=== PATIENT | female | born 1960 | race African-American/Black ===

== ENCOUNTER 2018-01-13 21:05 | Emergency (ER) | payer OTHER, BC ==
[~2018-01-13] VITALS: Ht 162.6 cm; Wt 104.3 kg
--- NOTE | ~2018-01-13 | EKG ---
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 : 1960 Requested By: Renu Dyer Order Number: [id number] MD: Timothy Parrish Measurements Intervals [place] Rate: 97 P: 44 SC: 180 QRS: 12 QRSD: 105 T: 35 QT: 381 QTc: 484 Interpretive Statements Sinus rhythm Possible inferior infarct, age indeterminate Compared to ECG 03/21/2015 21:15:53 No significant change was found Electronically Signed On 01-14-2018 7:42:28 CDT by Timothy Parrish [email or web address] <ELECTRONICALLY SIGNED> By: Timothy Parrish MD, [facility] 01/14/18 0742 D: [id number] 14 Timothy Parrish MD, FACC /EPI
[~2018-01-13 21:05] MED LIST: ACCUPRIL40 MG PO; ACETAMINOPHEN325 M1 PO; ACTOS 30 MG TAB30 MG PO; ADULT LOW DOSE81 MG PO; AMARYL1 MG PO; CARVEDILOL3.125 MG PO; CITRATE OF MAG296 ML PO; COLACE100 MG PO; FUROSEMIDE10 MG/1 M2 PO; GAVILAX17 GM PO; GLIMEPIRIDE1 MG PO; LANTUS SUBQ; LEVOXYL175 MCG PO; LEVOXYL200 MCG PO; LIPITOR20 MG PO; MIRALAX17 GM PO; NEPHRO-VITE RX1 TA1 PO; NORCO 5-325 TA1 EACH PO; NORVASC10 MG PO; NOVOLOG100 UNIT/1 SUBQ; OXYCODONE HCL 55 MG PO; PAXIL10 MG; PAXIL10 MG PO; PERCOCET 10-321 EACH PO; PERCOCET 5-3251 EACH PO; REGLAN 10 MG TA10 MG PO; REGLAN 5 MG TAB5 MG PO; RENAL TAB PO; RENVELA800 MG PO; SENNA PO; SENSIPAR 30 MG30 M1 PO; SENSIPAR60 MG PO; TRAMADOL 50 MG50 MG PO; VITAMIN D1000 UNI1 PO; VITAMIN E400 UNI6 PO; WELLBUTRIN SR150 MG PO
[2018-01-13 21:50] LABS: BASOPHILS 0.8 % (0.0-2.0); EOSINOPHILS 2.6 % (0.0-3.0); HEMATOCRIT 34.5 % (37.0-47.0); HEMOGLOBIN 11.1 gm/dL (12.0-15.0); LYMPHOCYTES 18.6 % (24.0-44.0); MCH 27.5 pg (26.0-34.0); MCHC 32.3 g/dL (28.0-37.0); MCV 85.2 fL (80.0-100.0); MONOCYTES 9.5 % (1.0-8.0); PLATELET COUNT 211 thou/uL (150-400); POLYS 68.5 % (36.0-66.0); RBC 4.05 mil/uL (4.20-5.00); RDW 19.4 % (10.5-14.5); WBC 4.3 thou/uL (4.0-11.0)
[2018-01-13 22:01] LABS: INR 1.1; PROTIME 11.3 Seconds (9.3-11.4)
[2018-01-13 22:35] LABS: CALCIUM 9.6 mg/dL (8.5-10.1); CREATININE 5.7 mg/dL (0.6-1.0); POTASSIUM 4.5 mmol/L (3.5-5.1)
[2018-01-13 22:40] LABS: ALBUMIN 3.4 g/dL (3.4-5.0); TOTAL BILIRUBIN 0.6 mg/dL (<0.1-1.0)
[2018-01-13 22:46] LABS: ANISOCYTOSIS 2+; HYPOCHROMASIA 1+; POLYCHROMASIA 1+
== END 2018-01-13 23:16 | disposition home or self-care (01) ==
LOC: ER 21:05
PROVIDERS: Physician Assistant
DX: R11.2 Nausea with vomiting, unspecified (principal); E11.22 Type 2 diabetes mellitus with diabetic chronic kidney disease; N18.6 End stage renal disease; K21.9 Gastro-esophageal reflux disease without esophagitis; E03.9 Hypothyroidism, unspecified; F32.9 Major depressive disorder, single episode, unspecified; F17.210 Nicotine dependence, cigarettes, uncomplicated; Z96.642 Presence of left artificial hip joint; Z86.2 Personal history of diseases of the blood and blood-forming organs and certain disorders involving the immune mechanism; Z86.73 Personal history of transient ischemic attack (TIA), and cerebral infarction without residual deficits; Z79.4 Long term (current) use of insulin

== ENCOUNTER 2018-01-24 14:34 | Inpatient (IN) | payer OTHER, BC ==
[~2018-01-24] VITALS: Ht 162.6 cm; Wt 115.7 kg
--- NOTE | ~2018-01-24 | HC ---
[facility] [place] [address] [place] [address] CONSULTATION Name: RAZIA COLEMAN Room #: 225-P [facility] IN ..#: [id number] Admission: 01/24/18 Attend Phys: Sarath Maher MD Discharge: Date of : 56 Report #: [id number] THIS REPORT FOR: //name// CC: Sarath Jurado DATE OF SERVICE: 01/25/2018 REASON FOR CONSULTATION: End-stage renal disease requiring hemodialysis. HISTORY OF PRESENT ILLNESS: This is a 57-year-old female who was admitted last evening through the Emergency Room. She actually presented in the middle of the afternoon apparently after having had some falls. She says her first fall was 4 days previous. It happened late afternoon. She fell backwards while using her walker. She chronically uses a walker at home. She denies any symptoms of trauma including not striking her head. She tells me she had had some lightheadedness and dizziness. She is normally a hemodialysis patient and dialyzes on a Saturday, Saturday, Saturday basis at [facility]. She had dialysis earlier in the day on 01/20/2018. She says her other falls occurred 2 days ago on 01/23/2018, that was on a nondialysis today. She says again she was somewhat weak, lightheaded, and fell again. She was brought in by her because of these recurrent falls and symptoms. The patient has old history of a stroke that was many years ago. She had some right-sided weakness with that and also some aphasia. For 10 years or so, she has been walking with a walker and has not had problem with falls. Concerning her dialysis, she has been on dialysis for many years. She dialyzes using a left upper arm access. I have contacted the dialysis unit and reviewed her dialysis records starting on 01/20/2018. On that day, she came in and had gained very little fluid volume over the 3-day weekend. Blood pressure was on the . They actually took 0.8 kilogram below her usual target weight, but that still resulted in only just about 1/2 kilos of ultrafiltration. Blood pressures were running 150-160 systolic throughout that run. She had no orthostatic hypotension and there was no description in the dialysis records of any hypotension, weakness or falling at the dialysis unit. She went home and her first fall was apparently a couple hours after that. A couple of days later, she came back for dialysis again, had gained no additional weight. Part of this was explained as she is on the new stricter diet for control of her diabetes. An additional 0.6 kilogram was removed. Yesterday, her dialysis was fairly uneventful. PAST MEDICAL HISTORY: Longstanding diabetes and hypertension. She has had as noted above. She has had a prior left total hip replacement and then that required repeat surgery due to infection. Her states she has been on a walker since that was all done and that has been over 10 years ago. She [address] [address] CONSULTATION Name: RAZIA COLEMAN Room #: 225-P ADM IN ..#: [id number] Admission: 01/24/18 Attend Phys: Sarath Maher MD Discharge: Date of : 56 Report #: [id number] dialyzes using a left upper arm access. She has had previous laminectomy and some diskitis and with the diskitis, has been on chronic suppressive Cipro as an antibiotic for years; that was from 2013. Cultures were Enterobacter and again she has been on chronic Cipro ever since 2013. She also has chronic hypothyroidism and is on replacement for that. She has secondary hyperparathyroidism and anemia of end-stage renal disease. MEDICATIONS: Sensipar 30 mg daily, Nephro-Joe 1 daily, long and short-acting insulin, levothyroxine 0.2 mg daily, oxycodone for pain, MiraLax 17 grams daily, Requip 0.5 mg at bedtime. She gets iron and erythropoietin at dialysis. ALLERGIES: No known medical allergies. FAMILY HISTORY: Noncontributory. SOCIAL HISTORY: The patient is and lives in [place], [place]. She is accompanied by her at this time. She is medically disabled. REVIEW OF SYSTEMS: She has been trying to lose weight. She has been limiting her intake of food. With that, she has actually lost some weight and we have had to adjust her dialysis regimen as noted above. She has had some lightheadedness and dizziness associated with the falls, but that is not a recurring symptom. No palpitations or chest pain. She denies dyspnea. No recent nausea or vomiting. She feels constipated and feels like she needs some extra MiraLax. Dialysis itself has otherwise been uncomplicated. No fevers, chills or sweats. PHYSICAL EXAMINATION: GENERAL: A 57-year-old female, seen in the CCU bed. VITAL SIGNS: Blood pressure 137/59, heart rate 86, temperature 98.6 degrees centigrade, oxygen saturation 99%. HEENT: Shows pupils equal and reactive. Sclerae nonicteric. Oral mucosa is moist. NECK: Supple without adenopathy or JVD. CHEST: Clear bilaterally. HEART: Has a regular rate and rhythm at this time. ABDOMEN: Obese, has active bowel sounds, soft, nontender. EXTREMITIES: Show trace bilateral pretibial edema. Left upper arm access has adequate blood flow. LABORATORY DATA: Sodium 130, potassium 3.7, chloride 95, bicarbonate 32, BUN 12, creatinine 4.1, glucose 180. Again, that was all after dialysis yesterday. AST 40, ALT 34, calcium 8.8, albumin 3.3. Troponin less than 0.06. White count 5.2, hemoglobin 11.0, hematocrit 34.1, platelets 226,000. ASSESSMENT: [address] [address] CONSULTATION Name: RAZIA COLEMAN Room #: 225-P [facility] IN [facility].#: [id number] Admission: 01/24/18 Attend Phys: Sarath Maher MD Discharge: Date of : 56 Report #: [id number] 1. End-stage renal disease. She dialyzed yesterday. She has received all three of her usual dialysis treatments this week. Volume and labs are okay on evaluation at this time. I do not see evidence currently for extra dialysis. We will get her back on her usual schedule beginning 01/27/2018 unless things change. 2. Several recent falls. One was 5 days ago, the other two were 2 days ago, uncertain why this is going on. She is currently being evaluated by physical therapy. Again, the first episodes were in a window of about 2 hours after dialysis even though she had no hypotension or any orthostatic drops demonstrated after dialysis. Her others were on a day between dialysis sessions. We have been trying to get some extra fluid off because she has been losing weight and her blood pressure has been on the . Oftentimes, this might be a setup for orthostatic changes and weakness and potential falls, but I just do not see it at this point. CT head showed her old cerebrovascular accidents. Also with her falls, we will further evaluate her lower extremities. She has had the old back abscess and she is still on the Cipro for that, that has been from about 4-5 years ago. 3. Longstanding type 2 diabetes mellitus. 4. Hypertension. Again, we have been working on volume management. She has been on no antihypertensive medications. 5. Hypothyroidism, on replacement. Continue the same. 6. Anemia, chronically on erythropoietin. PLAN: 1. Next dialysis needs to be in a couple of days. 2. We will continue other medications. 3. We certainly want to avoid p.r.n. blood pressure medications as we want to avoid any attempts at getting things too controlled or getting her orthostatic. 4. We will await neuro and physical therapy evaluations. 5. We will follow along in the care of this patient. By: [id number] [id number] Justin Rivas MD /nt
--- NOTE | ~2018-01-24 | HC ---
[facility] [address] CONSULTATION Name: RAZIA COLEMAN Room #: 225-P ADM IN .R.#: [id number] Admission: 01/24/18 Attend Phys: Sarath Maher MD Discharge: Date of : 56 Report #: [id number] THIS REPORT FOR: //name// CC: Sarath Jurado DATE OF SERVICE: 01/25/2018 HISTORY OF PRESENT ILLNESS: This is a 57-year-old female patient who was evaluated by me, poorly defined history. She gives a history that she is feeling weak. It is not sure how long it is going on. It started probably around Saturday. It started spontaneously without any trauma. It is not clear if she just feel dizzy or weak when it happened, but she said it happened when she tried to stand up. She had prior surgery on the hip. She had a back surgery. It is not clear how much weakness is new and how much is old. She complained of pretty significant dizziness and weakness. REVIEW OF SYSTEMS: Indicate that she is on dialysis for 8 years. She says she is a diabetic for a long period of time. She has a history of anemia. She has a history of stroke with right-sided weakness in 2001; in fact her CT scan shows multiple strokes. She had a hip surgery. She has anemia. She has depression. She has hypothyroidism. She had back surgery in the past. She used to smoke, but does not smoke now. This was her relevant 14-point review of systems. PAST MEDICAL HISTORY: Positive for falls. FAMILY HISTORY: Negative for early age stroke. SOCIAL HISTORY: The patient has smoked in the past, but she does not drink any alcohol. PHYSICAL EXAMINATION: NEUROLOGIC: Indicates she is alert, responsive, able to follow simple and complex command. Her speech, concentration, fund of knowledge and memory is at her baseline. Cranial nerve examination 2-12 was unremarkable. She is pretty weak in the proximal muscles of both lower extremities. She has trouble with the right shoulder, but that is old because of frozen shoulder. She said the leg weakness is also old, but I am not completely certain how old it is. She has a position sense in the lower extremities. Reflexes could not be elicited in the lower extremities. Tone looks symmetrical. She could not cooperate with the fundus examinations. No meningeal sign. There is no carotid bruit. Pulses are difficult to feel. She is moderately built individual who does not have any dysmorphic features of eyes, ears and face. EXTREMITIES: She has no edema, cyanosis or jaundice. CARDIAC: Does not show any definite abnormality. RESPIRATORY: Does not show any respiratory difficulty or rhonchi. [facility] [address] [place] [address] CONSULTATION Name: RAZIA COLEMAN Room #: 225-P [facility] IN M.R.#: [id number] Admission: 01/24/18 Attend Phys: Sarath Maher MD Discharge: Date of : 56 Report #: [id number] NECK: She has no thyroid mass or meningeal sign. VITAL SIGNS: Blood pressure is 137/59, pulse is 86, temperature is 98.6. LABORATORY DATA: Indicates a white count of 5.2. Her sodium is low at 130. She did have a CT scan, which showed old stroke and in fact she has multiple of that. IMPRESSION: I suspect multiple causes are playing a role in the patient's falls. She is pretty significantly weak in both lower extremities, especially proximally. She had a prior back surgery that is probably playing a role in her symptom. She may have postural hypotension and that need to be investigated to see she has compromised circulation. She does have a prior history of stroke that may be contributing to her problem. RECOMMENDATIONS: 1. I will like to get the blood pressure checked in this patient, standing and sitting. 2. We will see if her is compatible with MRI and we will like to do an MRI. They will do it on Saturday as I understand. We will keep an eye on her and see how she does. 3. I think she should work with PT, OT. 4. Rest of the workup will depend upon the outcome of these testing. Thank you very much for this referral. By: [id number] Francisco J Billings MD /nt
--- NOTE | ~2018-01-24 | EKG ---
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 : 1960 Requested By: Erika Edward Order Number: [id number] MD: Timothy Parrish Measurements Intervals [place] Rate: 87 P: 51 [place]: 171 QRS: 12 QRSD: 91 T: 23 QT: 396 QTc: 477 Interpretive Statements Sinus rhythm Small inferior Q waves Compared to ECG 01/13/2018 21:15:41 No significant change was found Electronically Signed On 01-25-2018 11:48:12 CDT by Timothy Parrish [email or web address] <ELECTRONICALLY SIGNED> By: Timothy Parrish MD, [facility] 01/25/18 1148 48 Timothy Parrish MD, [facility] /EPI
--- NOTE | ~2018-01-24 | 2DMMODE ---
[place] [address] [facility] [place] [address] 2 D/M-MODE ECHOCARDIOGRAM Name: RAZIA COLEMAN Radha Room #: 225-P [facility] IN ..#: [id number] Admission: 01/24/18 Attend Phys: Sarath Maher MD Discharge: Date of : 56 Date of Service: 01/25/18 1143 Report #: [id number] THIS REPORT FOR: //name// APPROVED REPORT Study performed: 01/25/2018 09:27:02 EXAM: Comprehensive 2D, Doppler, and color-flow Echocardiogram Patient Location: Bedside Room #: [facility] Status: on-call BSA: 2.17 HR: 92 bpm BP: 139/47 mmHg Rhythm: NSR Other Information Study Quality: Good Indications Weakness, falls. Hx: CVA, DM, tobacco abuse 2D Dimensions RVDd: 37.74 mm LVEF(%): 55.88 (>50%) IVSd: 11.92 (7-11mm) LVOT Diam: 20.28 (18-24mm) LVDd: 50.98 mm PWd: 11.04 (7-11mm) Ascending Ao: 32.37 (22-36mm) LVDs: 36.04 (25-40mm) Aortic Root: 31.43 mm Bassett's LVEF: 55.88 % Volumes Left Atrial Volume (Systole) Single Plane 4CH: 59.34 mL Single Plane 2CH: 59.74 mL Aortic Valve AoV Peak Brando.: 1.43 m/s AO Peak Gr.: 8.20 mmHg LVOT Max P.19 mmHg LVOT Max V: 1.14 m/s GÓMEZ Vmax: 2.57 cm2 Mitral Valve E/A Ratio: 0.8 MV Decel. Time: 184.04 ms MV E Max Brando.: 0.98 m/s [facility] [place] [address] 2 D/M-MODE ECHOCARDIOGRAM Name: RAZIA COLEMAN Room #: 225-P [facility] IN ..#: [id number] Admission: 01/24/18 Attend Phys: Sarath Maher MD Discharge: Date of : 56 Date of Service: 01/25/18 1143 Report #: [id number] A Brando.: 1.23 m/s MV PHT: 53.37 ms IVRT: 76.12 ms Pulmonary Valve PV Peak Brando.: 1.09 m/s PV Peak Gr.: 4.75 mmHg Pulmonary Vein P Vein S: 0.64 m/s P Vein D: 0.32 m/s P Vein S/D Ratio: 2.00 Tricuspid Valve TR Peak Brando.: 2.58 m/s RAP Estimate: 5.00 mmHg TR Peak Gr.: 26.56 mmHg PA Pressure: 32.00 mmHg Left Ventricle The left ventricle is normal size. There is normal LV segmental wall motion. Borderline concentric left ventricular hypertrophy. Left ventricular systolic function is normal. LVEF is 55-60%. Mild diastolic dysfunction is present (impaired relaxation pattern). Right Ventricle The right ventricle is normal size. The right ventricular systolic function is normal. Atria Left atrium is at the upper limits of normal. The right atrium size is normal. Aortic Valve The aortic valve is normal in structure. No aortic regurgitation is present. There is no aortic valvular stenosis. Mitral Valve Mild mitral annular calcification. No mitral regurgitation. No evidence of mitral valve stenosis. Tricuspid Valve The tricuspid valve is normal in structure. Trace tricuspid regurgitation. Estimated PAP is 30-35mmHg. Pulmonic Valve Pulmonic valve is not well visualized. [facility] [address] [place] [address] 2 D/M-MODE ECHOCARDIOGRAM Name: RAZIA COLEMAN Room #: 225-P [facility]#: [id number] Admission: 01/24/18 Attend Phys: Sarath Maher MD Discharge: Date of : 56 Date of Service: 01/25/18 1143 Report #: [id number] Great Vessels The aortic root is normal in size. The ascending aorta is normal in size. IVC is normal in size and collapses >50% with inspiration. Pericardium There is no pericardial effusion. <Conclusion> Left ventricular systolic function is normal. There is normal LV segmental wall motion. LVEF is 55-60%. Mild diastolic dysfunction The aortic valve is normal in structure. No aortic regurgitation or stenosis Mild mitral annular calcification. No mitral regurgitation. Trace tricuspid regurgitation. Estimated pulmonary artery pressure of 30-35mmHg. There is no pericardial effusion. <ELECTRONICALLY SIGNED> By: Timothy Parrish MD, FACC 01/25/18 1143 1143 1143 Timothy Parrish MD, FACC /INF
[2018-01-24 14:35] VITALS: BP 152/64
[2018-01-24 15:36] LABS: ABSOLUTE NEUTROPHILS 3.5 thou/uL (1.4-8.2); BASOPHILS 0.5 % (0.0-2.0); EOSINOPHILS 2.9 % (0.0-3.0); HEMATOCRIT 34.1 % (37.0-47.0); LYMPHOCYTES 18.6 % (24.0-44.0); MCH 27.8 pg (26.0-34.0); MCHC 32.3 g/dL (28.0-37.0); MCV 86.1 fL (80.0-100.0); MONOCYTES 9.8 % (1.0-8.0); PLATELET COUNT 226 thou/uL (150-400); POLYS 68.2 % (36.0-66.0); RBC 3.96 mil/uL (4.20-5.00); RDW 19.3 % (10.5-14.5); WBC 5.2 thou/uL (4.0-11.0)
[2018-01-24 15:50] LABS: ALBUMIN 3.3 g/dL (3.4-5.0); CALCIUM 8.8 mg/dL (8.5-10.1); CREATININE 4.1 mg/dL (0.6-1.0); POTASSIUM 3.7 mmol/L (3.5-5.1); TOTAL BILIRUBIN 0.7 mg/dL (<0.1-1.0); TOTAL PROTEIN 7.5 g/dL (6.4-8.2)
[2018-01-24] MEDS ORDERED: TRESIBA FL100 UNIT/1 SUBQ (15:52)
[2018-01-24 17:39] VITALS: BP 153/55
[2018-01-24 18:43] VITALS: BP 139/47
[2018-01-24 18:50] VITALS: BP 139/47
[2018-01-25 07:40] VITALS: BP 137/59
[2018-01-25] MEDS ORDERED: ROPINIROLE HCL0.5 MG PO (08:16)
[2018-01-25 19:59] VITALS: BP 118/45
[2018-01-26 08:38] VITALS: BP 141/72
[2018-01-26 20:15] VITALS: BP 129/56
[2018-01-27 08:17] VITALS: BP 145/54
[2018-01-27 19:53] VITALS: BP 128/54
[2018-01-28 07:40] VITALS: BP 154/64
[2018-01-28 20:31] VITALS: BP 121/47
[2018-01-29 03:06] LABS: IgA 112 mg/dL (87-352); IgG 1167 mg/dL (700-1600); IgM 53 mg/dL (26-217)
[2018-01-29 08:30] VITALS: BP 156/62
[2018-01-30 11:12] LABS: ANA INTERPRETATION Negative (Negative)
== END 2018-01-29 14:30 | DRG 551 ==
LOC: ER 14:34 → EROBS 16:43 → SICU 16:43
PROVIDERS: Nurse Practitioner Family; Psychiatry & Neurology Neuromuscular Medicine
PROC: 5A1D70Z Performance of Urinary Filtration, Intermittent, Less than 6 Hours Per Day (ICD-10-PCS; principal; 2018-01-26)
DX: M48.061 Spinal stenosis, lumbar region without neurogenic claudication (principal); N18.6 End stage renal disease; E87.1 Hypo-osmolality and hyponatremia; I69.954 Hemiplegia and hemiparesis following unspecified cerebrovascular disease affecting left non-dominant side; I12.0 Hypertensive chronic kidney disease with stage 5 chronic kidney disease or end stage renal disease; Z96.642 Presence of left artificial hip joint; E11.51 Type 2 diabetes mellitus with diabetic peripheral angiopathy without gangrene; K21.9 Gastro-esophageal reflux disease without esophagitis; E03.9 Hypothyroidism, unspecified; F32.9 Major depressive disorder, single episode, unspecified; D64.9 Anemia, unspecified; F17.210 Nicotine dependence, cigarettes, uncomplicated; E11.22 Type 2 diabetes mellitus with diabetic chronic kidney disease; E07.81 Sick-euthyroid syndrome; M54.16 Radiculopathy, lumbar region; E11.42 Type 2 diabetes mellitus with diabetic polyneuropathy; S90.129A Contusion of unspecified lesser toe(s) without damage to nail, initial encounter; W18.39XA Other fall on same level, initial encounter; Y93.89 Activity, other specified; Y92.89 Other specified places as the place of occurrence of the external cause; Y99.8 Other external cause status; Z79.4 Long term (current) use of insulin; Z99.2 Dependence on renal dialysis
CPT/HCPCS: 15000; 32100

== ENCOUNTER 2018-01-29 10:21 | Inpatient (IN) | payer OTHER, BC ==
[~2018-01-29] VITALS: Ht 162.6 cm; Wt 115.8 kg
--- NOTE | ~2018-01-29 | HC ---
[facility] [place] [address] [place] [address] CONSULTATION Name: RAZIA COLEMAN Room #: 511-P [facility] IN ..#: [id number] Admission: 01/29/18 Attend Phys: Abdiel Cline MD Discharge: Date of : 56 Report #: [id number] THIS REPORT FOR: //name// CC: Abdiel Cline Fab Jurado DATE OF SERVICE: 02/02/2018 NEUROBEHAVIORAL STATUS EXAM ATTENDING PHYSICIAN: Abdiel Cline MD. CLOTH SPREADER: Tyler Glaser, PhD. CLINICAL PRESENTATION: The patient is a 57-year-old female admitted to the rehab unit at [facility] for comprehensive inpatient rehabilitation program to improve functional mobility, activities of daily living and self-care and mental status secondary to deficits from a lumbar radiculopathy with lower extremity weakness. She carries an assessment that includes moderate to severe L4-L5 stenosis, a prior history of multiple CVAs within the left middle cerebral artery and lateral right frontal lobe. These CVAs are premorbid, but likely contributing to her presentation. ADDITIONAL DIAGNOSES: Include premorbid peripheral neuropathy, history of right rotator cuff injury with frozen shoulder, end-stage renal disease, on hemodialysis, exogenous obesity, diabetes mellitus type 2 that is poorly controlled and chronic anemia. A complete description of her medical condition and history can be found in her medical record. Neuropsychological consultation was requested to provide assistance in the assessment of cognitive and emotional status and to provide recommendations and services. Prior to this most recent admission, she was living at home with the assistance of her . The patient reports having had numerous falls prior to her admission. Her assisted with instrumental activities of daily living. The patient reports having been independent with most basic activities of daily living. However, at times, she did require assistance with aspects of dressing. She describes difficulty with coordinating motor movement prior to her admission along with dizziness. She is uncertain if she hit her head during any of her recent falls. The patient has been on disability since 2001. 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 TECHNIQUES UTILIZED: Clinical interview, review of medical records, staff consultation and behavioral observation, mini mental status exam 2 standard version, clock drawing and verbal fluency assessment (letter and category). EXAMINATION FINDINGS: The patient was alert and cooperative with the [address] [address] CONSULTATION Name: RAZIA COLEMAN Room #: 511-P [facility] IN ..#: [id number] Admission: 01/29/18 Attend Phys: Abdiel Cline MD Discharge: Date of : 56 Report #: [id number] assessment. She does not present with aphasia; although, she does have reduced verbal fluency. She does not describe auditory or visual hallucinations. Her thoughts are logical and goal oriented. She describes her symptoms to include sleep disturbance, tiredness and fatigue and depression. Her appetite is described as within normal limits. She indicates having taken an antidepressant prior to her hospitalization. However, she was not able to remember which medication she was taking. She is uncertain about her current mood regarding depression. Her performance on the MMSE 2 brief version was within normal limits with a raw score of 15 of 16. She was 3/3 for initial registration, 5/5 for orientation to time and place and 2/3 for immediate recall of 3 items after a brief time delay and distraction. Her performance on the MMSE 2 standard version suggests mild to moderate impairment with a raw score of 23, T score 31, percentile rank of 3. She was 1/5 for serial sevens, 2/2 for naming, 1/1 for repetition, 3/3 for comprehension. She was able to read and follow a single command. The patient had difficulty with writing a sentence and copying a simple geometric design. Verbal fluency was extremely low. She had a raw score of 7 for letter fluency and 9 for category fluency. The patient was able to draw a clock and place the numbers appropriately. However, deficits are noted in placing the hand at a designated time, suggesting executive dysfunction. The patient is presenting with deficits in attention/concentration and severe deficits in verbal fluency and generative speech. DIAGNOSTIC IMPRESSION: Major neurocognitive disorder (dementia), due to vascular disease -- without behavior disorder -- extent to be determined, likely in the moderate range. Unspecified depressive disorder. RECOMMENDATIONS: The patient will need assistance in medication, nutrition and director patient financial services upon her return home. Her environment should be structured to maintain independence and control to the extent possible. Verbal praise and complements about participation in therapies. She will also benefit from the use of compensatory strategies to assist in the management of concentration and thought organization and verbal fluency. Consider reinstatement of an antidepressant. [address] [address] CONSULTATION Name: RAZIA COLEMAN Room #: 511-P [facility] IN M.R.#: [id number] Admission: 01/29/18 Attend Phys: Abdiel Cline MD Discharge: Date of : 56 Report #: [id number] Thank you very much for allowing me to provide the consultation on this patient. <ELECTRONICALLY SIGNED> By: Tlyer Glaser, PhD 02/04/18 1202 [id number] Tyler Glaser, PhD /nt
--- NOTE | ~2018-01-29 | H ---
[facility] [place] [address] HISTORY AND PHYSICAL Name: RAZIA COLEMAN Room #: 511-P ADM IN M.R.#: [id number] Admission: 01/29/18 Attend Phys: Abdiel Cline MD Discharge: Date of : 56 Report #: [id number] THIS REPORT FOR: //name// CC: Abdiel Jurado DATE OF SERVICE: 01/29/2018 HISTORY AND PHYSICAL/POST-ADMISSION PHYSICIAN EVALUATION HISTORY OF PRESENT ILLNESS: The patient is a 57-year-old -[place] female originally admitted to [facility] on 01/24/2018 with a history of falls x 3 within the last week. Lower extremity weakness, mild hyponatremia. She has been followed by Nephrology as well as Neurology regarding the fall workup. She was found to have moderate to severe L4-L5 thecal sac stenosis with lumbar radiculopathy with lower extremity weakness. Neurology recommended EMG be done as an outpatient. She also recommended evaluation by a spine physician. MRI of the brain did reveal multiple strokes in the brain, which were noted to be old and may be contributing some to the presentation. She also was noted to have a diabetic neuropathy, which is a contributing factor. MRI of the brain showed chronic areas of infarction involving a large portion of the left middle cerebral artery and a smaller one involving the lateral right frontal lobe. She is a chronic dialysis patient. She is noted to have significant functional mobility and ADL deficits and with the history of falls and gait instability and the new radiculopathy symptomatology. She has now been admitted for acute in-hospital inpatient rehabilitation. PAST MEDICAL HISTORY: Includes a prior left hip replacement, insulin-dependent diabetes mellitus, GERD, anemia, hepatitis C, peripheral vascular disease, stroke in 2001 with right-sided weakness, hypothyroidism, and depression. She has had a prior laminectomy L3-L4 with L2 through L4 instrumental pedicle screw in 2012. HABITS: Former smoker, 80-llsl-skde history. ALLERGIES: No known drug allergies. MEDICATIONS: Please see the full medication listing. This list includes vitamins, herbals, and supplements. SOCIAL HISTORY: Lives in a single-story house with her spouse 3 entry steps in. She does have a basement, but she does not need to go down there. She was able to feed herself, dress herself. does the cooking, cleaning, shopping, driving. She used a front-wheeled walker in the home wheelchair if needed for longer distances. [facility] [address] [place] [address] HISTORY AND PHYSICAL Name: RAZIA COLEMAN Room #: 511-P [facility] IN ..#: [id number] Admission: 01/29/18 Attend Phys: Abdiel Cline MD Discharge: Date of : 56 Report #: [id number] REVIEW OF SYSTEMS: No current complaints of chest pain, shortness of breath, abdominal discomfort. She has the complaints of lower extremity weakness and concern with gait stability. PHYSICAL EXAMINATION: GENERAL: A 57-year-old obese -[place] female in no distress. She had a low blood sugar earlier today. VITAL SIGNS: Temperature 98.3, pulse 91, respirations 18, blood pressure 143/64. Facies appeared symmetric. HEAD, EYES, EARS, NOSE, AND THROAT: Appeared to be benign. CHEST: Sounded clear to auscultation. CARDIOVASCULAR: Regular rate and rhythm. ABDOMEN: Bowel sounds positive, nontender. GENITOURINARY AND RECTAL: Deferred. EXTREMITIES: She has functional range of motion of the left upper extremity. Right upper extremity, she has decreased abduction, forward flexion, which is significantly decreased and she indicates that she apparently has a frozen shoulder. She notes that she has had an appointment scheduled for an orthopedist to further evaluate. Apparently had some type of rotator cuff injury. Bilateral lower extremities, able to lift antigravity. No edema. Negative Homans sign. Tone appeared to be intact. Transfers have been mod assist with gait min assist to short distance. ASSESSMENT: A 57-year-old -[place] female with the following problem list: 1. Lumbar radiculopathy with lower extremity weakness. 2. Moderate to severe L4-L5 thecal sac stenosis. 3. Prior history of multiple CVAs, left middle cerebral artery and lateral right frontal lobe which are premorbid, but likely contributory to her presentation. 4. Premorbid peripheral neuropathy. 5. History of right rotator cuff injury/frozen shoulder. 6. End-stage renal disease, on hemodialysis. 7. Exogenous obesity. 8. Diabetes mellitus type 2, poorly controlled. 9. Chronic anemia. PLAN: The patient is admitted for acute in-hospital inpatient rehabilitation. From a postadmission physician evaluation perspective, there are no relevant changes since the preadmission screening. Please see the above review of prior and current medical and functional conditions and comorbidities. Please see the patient's previous and current functional status. As far as risk of complications, the patient has the multiple medical comorbidities as noted above. Initial plan of care involves the interdisciplinary acute inpatient rehabilitation program with the goal of maximizing the patient's functional [facility] [address] [place] [address] HISTORY AND PHYSICAL Name: RAZIA COLEMAN Room #: 511-P [facility] IN [facility].#: [id number] Admission: 01/29/18 Attend Phys: Abdiel Cline MD Discharge: Date of : 56 Report #: [id number] independence, so she can hopefully return back to her prior living situation. Measurable functional goals would be for her to improve her ADL and mobility independence decrease the incidence of falls and improve her safety. Strength and endurance and confidence. Prognosis is reasonably good with estimated length of stay probably at least 7-14 days pending progress. Potential barriers would include her multiple medical comorbidities and decreased functional status. The patient meets diagnostic criteria for an acute in-hospital inpatient rehabilitation stay. She meets the medical necessity criteria and we will have the oracle endeca consultant physicians continue to follow. She does have the tolerance for therapies and has appropriate discharge goals back to the home setting. The patient will need to see a spine surgeon post-discharge for further evaluation as per Neurology recommendations. <ELECTRONICALLY SIGNED> By: Abdiel Cline MD 02/12/18 1735 [id number] 1111 Abdiel Cline MD /[facility]
--- NOTE | ~2018-01-29 | PLAN ---
[facility] [place] [address] REHAB UNIT PLAN OF CARE Name: RAZIA COLEMAN Room #: 511-P ADM IN ..#: [id number] Admission: 01/29/18 Attend Phys: Abdiel Cline MD Discharge: Date of : 56 Report #: [id number] THIS REPORT FOR: //name// CC: Abdiel Jurado DATE OF SERVICE: 01/31/2018 SUBJECTIVE: The patient is seen back today in followup. She is in no distress. Last recorded temperature 98.3, pulse 91, respirations 18, blood pressure 143/64. No focal calf swelling. She did have a low blood sugar down to 41, which is being treated. It is back up to 83 now. No focal calf swelling. Transfers are mod assist with gait min assist 100 feet with a four-wheeled walker. In occupational therapy, lower body dressing is dependent. ASSESSMENT: 1. Lumbar radiculopathy with lower extremity weakness. 2. Moderate to severe L4-L5 thecal sac stenosis. 3. Prior history of multiple CVAs, left middle cerebral artery and lateral right frontal lobe, noted to be premorbid. 4. Premorbid peripheral neuropathy. 5. History of right rotator cuff injury/frozen shoulder. 6. End-stage renal disease, on hemodialysis. 7. Exogenous obesity. 8. Diabetes mellitus type 2, poorly controlled. 9. Chronic anemia. PLAN: The overall plan of care is based on the preadmission screen, post-admission physician evaluation and information garnered from therapy assessments. 1. Estimated length of stay is probably at least 7-10 days. 2. Medical prognosis is reasonably good. 3. Anticipated interventions includes the interdisciplinary acute inpatient rehabilitation program with PT and OT, working with her rehab nursing assisting regarding medication management, skin care prophylaxis, bowel and bladder issues, and nursing education. We will have the multidisciplinary rehab therapy team involved. The retail sales vitamin consultant physicians will be involved as well. 4. Anticipated functional outcomes would be for the patient to improve as far as her functional independence due to use of the wheelchair walker in the home and the ability to return back to her prior functional level. The goal is to be independent short distances with a walker and to be able to do basic ADLs. 5. Discharge destination would be back home with her . 6. Expected therapy by discipline includes PT and OT one to one and half hours per day each five days a week throughout the duration of the [place] [address] REHAB UNIT PLAN OF CARE Name: RAZIA COLEMAN Room #: 511-P [facility]#: [id number] Admission: 01/29/18 Attend Phys: Abdiel Cline MD Discharge: Date of : 56 Report #: [id number] The patient missed some therapy yesterday due to dialysis. <ELECTRONICALLY SIGNED> By: Abdiel Cline MD 02/12/18 1735 0854 [id number] Abdiel Cline MD /[place]
[~2018-01-29 10:21] MED LIST changes: +ROPINIROLE HCL0.5 MG PO; +TRESIBA FL100 UNIT/1 SUBQ
[2018-01-29 14:30] VITALS: BP 160/68
[2018-01-29 19:53] VITALS: BP 155/82
[2018-01-30 05:30] LABS: HEMOGLOBIN 10.3 gm/dL (12.0-15.0); MCH 28.3 pg (26.0-34.0); MCHC 33.3 g/dL (28.0-37.0); MCV 84.9 fL (80.0-100.0); RBC 3.65 mil/uL (4.20-5.00); RDW 19.5 % (10.5-14.5); WBC 5.2 thou/uL (4.0-11.0)
[2018-01-30 05:41] LABS: CALCIUM 8.6 mg/dL (8.5-10.1); CREATININE 9.5 mg/dL (0.6-1.0); POTASSIUM 4.7 mmol/L (3.5-5.1)
[2018-01-30 07:30] VITALS: BP 143/64
[2018-01-30 07:40] VITALS: BP 143/64
[2018-01-30 20:21] VITALS: BP 131/71
[2018-01-31 07:20] VITALS: BP 167/79
[2018-01-31 14:10] LABS: GLYCOHEMOGLOBIN (HGB A1C) 6.7 % (4.8-5.6)
[2018-01-31 19:52] VITALS: BP 162/74
[2018-02-01 09:10] VITALS: BP 130/78
[2018-02-01 19:18] VITALS: BP 141/70
[2018-02-02 07:45] VITALS: BP 152/79
[2018-02-02 19:35] VITALS: BP 161/78
[2018-02-03 07:30] VITALS: BP 183/82
[2018-02-03 19:23] VITALS: BP 185/74
[2018-02-04 07:45] VITALS: BP 189/81
[2018-02-04 19:39] VITALS: BP 153/75
[2018-02-05 04:40] LABS: ABSOLUTE NEUTROPHILS 2.9 thou/uL (1.4-8.2); BASOPHILS 1.1 % (0.0-2.0); EOSINOPHILS 2.9 % (0.0-3.0); HEMATOCRIT 27.4 % (37.0-47.0); HEMOGLOBIN 9.4 gm/dL (12.0-15.0); LYMPHOCYTES 21.8 % (24.0-44.0); MCHC 34.3 g/dL (28.0-37.0); MCV 84.6 fL (80.0-100.0); PLATELET COUNT 155 thou/uL (150-400); POLYS 66.2 % (36.0-66.0); RBC 3.24 mil/uL (4.20-5.00); RDW 18.7 % (10.5-14.5); WBC 4.4 thou/uL (4.0-11.0)
[2018-02-05 04:46] LABS: CALCIUM 8.7 mg/dL (8.5-10.1); CREATININE 6.2 mg/dL (0.6-1.0); MAGNESIUM 2.7 mg/dL (1.8-2.4); POTASSIUM 4.9 mmol/L (3.5-5.1)
[2018-02-05 08:20] VITALS: BP 169/85
[2018-02-05 11:00] VITALS: BP 143/85
[2018-02-05 19:34] VITALS: BP 129/61
[2018-02-06 07:35] VITALS: BP 156/76
[2018-02-06 20:21] VITALS: BP 123/58
[2018-02-07 06:47] LABS: ABSOLUTE NEUTROPHILS 2.5 thou/uL (1.4-8.2); BASOPHILS 1.3 % (0.0-2.0); HEMATOCRIT 28.3 % (37.0-47.0); HEMOGLOBIN 9.3 gm/dL (12.0-15.0); MCH 28.4 pg (26.0-34.0); MCHC 32.7 g/dL (28.0-37.0); MONOCYTES 9.1 % (1.0-8.0); PLATELET COUNT 159 thou/uL (150-400); POLYS 60.6 % (36.0-66.0); RBC 3.26 mil/uL (4.20-5.00); RDW 18.3 % (10.5-14.5); WBC 4.1 thou/uL (4.0-11.0)
[2018-02-07 06:58] LABS: CALCIUM 8.7 mg/dL (8.5-10.1); MAGNESIUM 2.4 mg/dL (1.8-2.4); POTASSIUM 5.1 mmol/L (3.5-5.1)
[2018-02-07 07:01] LABS: % SATURATION 28 % (20-39); IRON 47 ug/dL (50-170); TIBC 165 ug/dL (250-450)
[2018-02-07 07:30] VITALS: BP 149/68
[2018-02-07 17:45] VITALS: BP 177/85
[2018-02-07 20:07] VITALS: BP 126/85
[2018-02-08 07:55] VITALS: BP 156/82
[2018-02-08 19:49] VITALS: BP 150/72
[2018-02-09 07:20] VITALS: BP 182/57
[2018-02-09 20:02] VITALS: BP 149/66
[2018-02-10 07:30] VITALS: BP 167/78
[2018-02-10 12:24] VITALS: BP 170/72
[2018-02-10 19:35] VITALS: BP 148/85
[2018-02-11 05:25] LABS: ABSOLUTE NEUTROPHILS 3.6 thou/uL (1.4-8.2); EOSINOPHILS 3.2 % (0.0-3.0); HEMOGLOBIN 9.9 gm/dL (12.0-15.0); LYMPHOCYTES 23.7 % (24.0-44.0); MCH 28.8 pg (26.0-34.0); MCHC 33.1 g/dL (28.0-37.0); MCV 87.2 fL (80.0-100.0); MONOCYTES 6.6 % (1.0-8.0); PLATELET COUNT 188 thou/uL (150-400); POLYS 65.5 % (36.0-66.0); RBC 3.44 mil/uL (4.20-5.00); RDW 18.6 % (10.5-14.5); WBC 5.5 thou/uL (4.0-11.0)
[2018-02-11 05:41] LABS: CALCIUM 9.4 mg/dL (8.5-10.1); CREATININE 9.9 mg/dL (0.6-1.0); POTASSIUM 5.4 mmol/L (3.5-5.1)
[2018-02-11 07:25] VITALS: BP 164/81
[2018-02-11 19:25] VITALS: BP 131/66
[2018-02-12 07:30] VITALS: BP 125/78
[2018-02-12 20:17] VITALS: BP 134/72
[2018-02-13 07:10] VITALS: BP 167/76
[2018-02-13 14:38] VITALS: BP 167/76
[2018-02-13 20:20] VITALS: BP 117/59
[2018-02-14 07:30] VITALS: BP 145/64
[2018-02-14 14:04] VITALS: BP 167/76
[2018-02-14 19:39] VITALS: BP 140/58
[2018-02-15] MEDS ORDERED: CYCLOBENZAPRINE5 MG PO (06:36)
[2018-02-15] MEDS ORDERED: COREG6.25 MG PO (06:36)
[2018-02-15] MEDS ORDERED: RENVELA800 MG PO (06:36)
[2018-02-15] MEDS ORDERED: ASPIRIN325 PO (06:36)
[2018-02-15] MEDS ORDERED: PROCRIT20000 UNIT SUBQ (06:36)
[2018-02-15] MEDS ORDERED: VOLTAREN GEL 1100 G2 TOP (06:36)
[2018-02-15 07:15] VITALS: BP 130/63
== END 2018-02-15 13:59 | disposition home health service (06) | DRG 551 ==
PROVIDERS: Internal Medicine Gastroenterology; Nurse Practitioner; Physical Medicine & Rehabilitation
PROC: 5A1D70Z Performance of Urinary Filtration, Intermittent, Less than 6 Hours Per Day (ICD-10-PCS; principal; 2018-01-30)
PROC: 5A1D70Z Performance of Urinary Filtration, Intermittent, Less than 6 Hours Per Day (ICD-10-PCS; 2018-02-01)
PROC: 5A1D70Z Performance of Urinary Filtration, Intermittent, Less than 6 Hours Per Day (ICD-10-PCS; 2018-02-04)
PROC: 5A1D70Z Performance of Urinary Filtration, Intermittent, Less than 6 Hours Per Day (ICD-10-PCS; 2018-02-06)
PROC: 5A1D70Z Performance of Urinary Filtration, Intermittent, Less than 6 Hours Per Day (ICD-10-PCS; 2018-02-08)
PROC: 5A1D70Z Performance of Urinary Filtration, Intermittent, Less than 6 Hours Per Day (ICD-10-PCS; 2018-02-11)
PROC: 5A1D70Z Performance of Urinary Filtration, Intermittent, Less than 6 Hours Per Day (ICD-10-PCS; 2018-02-13)
PROC: 5A1D70Z Performance of Urinary Filtration, Intermittent, Less than 6 Hours Per Day (ICD-10-PCS; 2018-02-15)
DX: M54.16 Radiculopathy, lumbar region (principal); N18.6 End stage renal disease; E87.1 Hypo-osmolality and hyponatremia; Z68.41 Body mass index [BMI] 40.0-44.9, adult; I69.351 Hemiplegia and hemiparesis following cerebral infarction affecting right dominant side; K92.1 Melena; M48.061 Spinal stenosis, lumbar region without neurogenic claudication; R53.81 Other malaise; R26.9 Unspecified abnormalities of gait and mobility; Z96.642 Presence of left artificial hip joint; K21.9 Gastro-esophageal reflux disease without esophagitis; E03.9 Hypothyroidism, unspecified; F32.9 Major depressive disorder, single episode, unspecified; E66.09 Other obesity due to excess calories; E55.9 Vitamin D deficiency, unspecified; E07.81 Sick-euthyroid syndrome; D63.8 Anemia in other chronic diseases classified elsewhere; R42 Dizziness and giddiness; R53.1 Weakness; F01.50 Vascular dementia, unspecified severity, without behavioral disturbance, psychotic disturbance, mood disturbance, and anxiety; R29.6 Repeated falls; E10.51 Type 1 diabetes mellitus with diabetic peripheral angiopathy without gangrene; E10.22 Type 1 diabetes mellitus with diabetic chronic kidney disease; E10.65 Type 1 diabetes mellitus with hyperglycemia; E10.42 Type 1 diabetes mellitus with diabetic polyneuropathy; S90.122A Contusion of left lesser toe(s) without damage to nail, initial encounter; X58.XXXA Exposure to other specified factors, initial encounter; R10.13 Epigastric pain; R41.89 Other symptoms and signs involving cognitive functions and awareness; I65.23 Occlusion and stenosis of bilateral carotid arteries; Z99.2 Dependence on renal dialysis; Z79.4 Long term (current) use of insulin; Z86.19 Personal history of other infectious and parasitic diseases; Z87.891 Personal history of nicotine dependence; Z91.81 History of falling; Y93.89 Activity, other specified; Y92.89 Other specified places as the place of occurrence of the external cause; Y99.8 Other external cause status
CPT/HCPCS: 10112; 32100

== ENCOUNTER 2019-11-05 17:52 | Inpatient (IN) | payer OTHER, BC ==
[~2019-11-05] VITALS: Ht 162.6 cm; Wt 111.2 kg
--- NOTE | ~2019-11-05 | HC ---
[facility] [place] [address] [place] [address] CONSULTATION Name: RAZIA COLEMAN Room #: 246-P [facility] IN M.R.#: [id number] Admission: 11/05/19 Attend Phys: Bambi Hanks MD Discharge: Date of : 56 Report #: [id number] THIS REPORT FOR: cc: Fab Jurado MD,Fab Díaz,Lynn Crews MD ~ CC: Bambi Jurado DATE OF SERVICE: 11/06/2019 REASON FOR CONSULTATION: End-stage renal disease. REASON FOR PRESENTATION: Status post fall with headache. HISTORY OF PRESENT ILLNESS: This is a very well-known patient to me. She is in end-stage renal disease due to diabetes mellitus and hypertension. She is also known to have hepatitis C, hypothyroidism. She presented yesterday after a fall. She was trying to reach out to something on the floor. She sustained head trauma. When she presented to the Emergency Room yesterday, she was found to have subdural hematoma and was admitted for further evaluation and management. I am being consulted to manage her end-stage renal disease. She denies any gross neurological deficits. PAST MEDICAL HISTORY: 1. End-stage renal disease, maintained on hemodialysis every Saturday, Saturday and Saturday. 2. Diabetes mellitus. 3. Hypertension. 4. Hepatitis C. 5. Peripheral vascular disease. 6. Hypothyroidism. 7. Status post laminectomy. 8. Right shoulder surgery. ALLERGIES: None. MEDICATIONS: 1. EPO. 2. Carvedilol. 3. Aspirin. 4. Insulin. 5. Sensipar. 6. Levothyroxine. 7. Folic acid. [facility] [address] [place] [address] CONSULTATION Name: RAZIA COLEMAN Room #: 246-P [facility] IN ..#: [id number] Admission: 11/05/19 Attend Phys: Bambi Hanks MD Discharge: Date of : 56 Report #: [id number] SOCIAL HISTORY: She denies drug or alcohol abuse. FAMILY HISTORY: Significant for hypertension and diabetes mellitus. REVIEW OF SYSTEMS: GENERAL: No fever or chills. CARDIOVASCULAR: No chest pain or palpitation. PULMONARY: No cough or hemoptysis. GASTROINTESTINAL: No nausea or vomiting. NEUROLOGICAL: Headache. MUSCULOSKELETAL: Occasional ankles pain. PHYSICAL EXAMINATION: GENERAL: She is alert, oriented, in no apparent distress. VITAL SIGNS: Blood pressure is 152/49, pulse rate is 95. HEAD AND NECK: No jugular venous distention. CHEST: No crackles. CARDIOVASCULAR: No rub detected. ABDOMEN: Soft, nontender. LOWER EXTREMITIES: No edema. NEUROLOGICAL: No gross deficits. LABORATORY DATA: Values reviewed. Sodium is 129, potassium is 5.9, BUN is 46, creatinine 7.3. CT head was consistent with left-sided subdural hematoma. ASSESSMENT, IMPRESSION AND PLAN: 1. End-stage renal disease. 2. Diabetes mellitus. 3. Hyponatremia. 4. Hyperkalemia. 5. Subdural hematoma. 6. I will arrange for the patient to have her usual hemodialysis today. 7. Neurosurgical consultation has been obtained for her subdural hematoma. 8. Resume the patient's blood pressure and blood sugar medication. 9. We will continue to follow during her hospital stay. By: [id number] Lynn Díaz MD /nt
--- NOTE | ~2019-11-05 | EMS ---
[address] [address] EMS Patient Care Report Name: RAZIA COLEMAN Room #: REG JAMARI [place]#: [id number] Admission: 11/05/19 Attend Phys: Discharge: Date of : 56 Report #: [id number] THIS REPORT FOR: //name// Report Transmitted: 11/05/2019 17:40 EMS Care Summary [place], [place]/[facility] Incident [id number] @ 11/05/2019 17:13 Incident Location [address] [place], [place] [address] [address] Patient RAZIA COLEMAN Female, 59 Years 1960 Patient Address [facility] [place] [address] Patient History Dialysis, Patient Allergies No known allergies, Chief Complaint HEAD AND CHEEK PAIN Disposition Transported No Lights/[place] Dispatch Reason Falls Transported To [facility] Narrative ARRIVED ON SCENE AT A RESIDENTIAL HOME FOR A 59 YEAR OLD FEMALE WHO FELL. PUMPER CREW AND EMS ARRIVED ON SCENE AT THE SAME TIME. EMS MADE ENTRY IN PROPER PPE TO MITIGATE POTENTIAL EXPOSURES. PT DENIED FEVER, COUGH, SHORTNESS OF BREATH, OR ANY FLU LIKE SYMTOMS. PT CONTACT WAS MADE WITH THE PT'S . PT [address] [address] EMS Patient Care Report Name: RAZIA COLEMAN Room #: REG JAMARI [place]#: [id number] Admission: 11/05/19 Attend Phys: Discharge: Date of : 56 Report #: [id number] WAS SITTING UP ON THE FLOOR WITH HER HOLDING PRESSURE ON THE PT'S HEAD. PT STATED SHE WAS WALKING WITH HER WALKER AND LOST HER BALANCE AND FELL AND HIT HER HEAD ON HER KITCHEN COUNTER. EMS EXAMINED THE PT'S HEAD AND FOUND A 3 INCH LACERATION IN THE CENTER OF THE TOP OF HER HEAD WITH MODERATE BLEEDING AND A CONTUSION BESIDE IT. PT FELL FOREWARD AND DENIED ANY NECK PAIN AND THE PT HAS CRONIC BACK PAIN. PT ALSO HAD SWELLING ON HER RIGHT CHEEK FROM THE FALL. PT DENIED LOSS OF COUNCIOUSNESS. PT TAKES ASPIRIN DAILY AND DENIES ANY OTHER BLOOD THINNERS. PT WAS LIFTED VIA 5 FIRE FIGHTERS AND WAS CARRIED TO THE COT AND PLACED IN A POSITION OF COMFORT AND SECURED VIA 2 SEATBELTS. PT WAS TRANSPORTED TO AND LOADED INTO THE AMBULANCE. EMS HOOKED THE PT UP TO THE MONITOR AND BANDAGED THE PT'S LACERATION AND CONTROLLED THE BLEEDING. PT WAS TRANSPORTED TO [facility] PER PT CHOICE WITH NO CHANGES EN ROUTE. PT WAS TAKEN TO ER BED 5 WHERE TRANSPORT REPORT WAS GIVEN TO THE RECEIVING STAFF. ER NURSE SIGNED FOR TRANSFER OF CARE AND EMS WENT BACK INTO SERVICE. Initial Vitals @17:41P: 87,R: 20,BP: 132/70,Pain: 6/10,GCS: 15,CO: 7,SpO2: 99,Revised Trauma: 12,CT Suspected: false @17:30P: 92,R: 20,BP: 153/76,Pain: 6/10,GCS: 15,CO: 1,SpO2: 98,Revised Trauma: 12,CT Suspected: false Assessments @17:21MENTAL:Person Oriented,Time Oriented,Place Oriented,Event Oriented,SKIN:HEENT:Head/Face: Swelling,Eyes: Left Pupil: 3-mm,Eyes: Right Pupil: 3-mm,Neck/Airway: No Abnormalities,LUNG SOUNDS:General: No Abnormalities,ABDOMEN:General: No Abnormalities,PELVIS//GI:No Abnormalities,EXTREMITIES:Left Arm: No Abnormalities,Right Arm: No Abnormalities,Left Leg: No Abnormalities,Right Leg: No Abnormalities,PULSE:NEURO:No Abnormalities, Impression Injury of Head Procedures @17:21ALS AssessmentResponse: UnchangedSucceeded@17:32Saline Lock 0cc (18 ga) Site: Antecubital-LeftResponse: UnchangedFailed Timeline 17:12,Call Received 17:12,Dispatch Notified 17:13,Dispatched 17:15,En Route 17:19,On Scene 17:21,At Patient 17:21,ALS Assessment,Response: UnchangedSucceeded, 17:30,BP: 153/76 M,PULSE: 92,RR: 20 R,SPO2: 98 Ox,ETCO2: ,BG: ,PAIN: 6,GCS: 15, [facility] [address] [place] [address] EMS Patient Care Report Name: RAZIA COLEMAN [facility] [id number] Admission: 11/05/19 Attend Phys: Discharge: Date of : 56 Report #: [id number] 17:32,Saline Lock 0cc 18 ga Site: Antecubital-Left,Response: UnchangedFailed, 17:33,Depart Scene 17:41,BP: 132/70 M,PULSE: 87,RR: 20 R,SPO2: 99 Ox,ETCO2: ,BG: ,PAIN: 6,GCS: 15, 17:42,At Destination 17:59,Call Closed Disclaimer v1.1 Copyright 2020 [employer] This EMS Care Summary contains data elements from the applicable legal record (which may be displayed differently). It is designed to provide pertinent information for the following purposes: continuity of care, clinical quality, and state data reporting. The complete legal record is available to ED staff and administrators of the receiving hospital in [employer]'s Patient Tracker. All data is provided "as is."
[~2019-11-05 17:52] MED LIST changes: +ASPIRIN325 PO; +COREG6.25 MG PO; +CYCLOBENZAPRINE5 MG PO; +PROCRIT20000 UNIT SUBQ; +VOLTAREN GEL 1100 G2 TOP
[2019-11-05 17:53] VITALS: BP 148/47
[2019-11-05 20:23] VITALS: BP 146/56
[2019-11-05 21:06] LABS: ABSOLUTE NEUTROPHILS 4.2 thou/uL (1.4-8.2); HEMATOCRIT 31.5 % (37.0-47.0); HEMOGLOBIN 10.4 gm/dL (12.0-15.0); LYMPHOCYTES 16.1 % (24.0-44.0); MCH 29.5 pg (26.0-34.0); MCHC 32.9 g/dL (28.0-37.0); MCV 89.6 fL (80.0-100.0); PLATELET COUNT 241 thou/uL (150-400); POLYS 73.9 % (36.0-66.0); RBC 3.51 mil/uL (4.20-5.00); RDW 16.8 % (10.5-14.5); WBC 5.6 thou/uL (4.0-11.0)
[2019-11-05 21:15] LABS: CALCIUM 9.3 mg/dL (8.5-10.1); CREATININE 6.5 mg/dL (0.6-1.0); POTASSIUM 3.9 mmol/L (3.5-5.1)
[2019-11-05 21:19] LABS: APTT 21.9 Seconds (24.5-32.8); INR 1.1; PROTIME 11.4 Seconds (9.3-11.4)
[2019-11-05 22:00] VITALS: BP 115/46; BP 115/47
--- NOTE | 2019-11-05 22:56 | NUR ---
PT ARRIVED FROM ER AT 2132. VITAL SIGNS AND ASSESSMENT COMPLETED PER ICU PROTOCOL. EUFEMIA FRANCOIS AT BEDSIDE NOW.
[2019-11-05 23:30] VITALS: BP 114/49
[2019-11-06] VITALS (43 sets, daily range): BP systolic 85–162; BP diastolic 31–76
[2019-11-06 05:04] LABS: CALCIUM 8.2 mg/dL (8.5-10.1); CREATININE 7.3 mg/dL (0.6-1.0)
[2019-11-06 05:05] LABS: POTASSIUM 5.2 mmol/L (3.5-5.1)
--- NOTE | 2019-11-06 06:05 | NUR ---
Neurocheck hourly per order, No changes from admission assessment. Repeat CT head this am, result is pending. BS 383 mg/Dl. Notified LEGAL RECOVERY SPECIALIST mental health consultant, will start her on SSI.
--- NOTE | 2019-11-06 09:14 | NUR ---
cm tried x 3 to reach pt at bedside via phone call, unable to call into pt room via phone. pt currently being set up for her dialysis tx. will cont following as needed for dc needs. simone spoke with bedside nurse and requested to have dora call simone.
[2019-11-06] MEDS ORDERED: LEVEMIR FL100 UNIT/2 SUBQ (10:24)
--- NOTE | 2019-11-06 13:24 | NUR ---
PT ON SERVICE WITH [facility] PRIOR TO ADM. FAXED REFERRAL TO [facility] SPOKE WITH GAURAV IN INTAKE SHE RECEIVED REFERRAL AND WILL [facility] AT DISCHARGE. IF PT DISCHARGES OVER WEEKEND FAX DC ORDERS/SUMMARY TO [phone] AND CALL [phone] TO NOTIFY OF DISCHARGE.
--- NOTE | 2019-11-06 15:45 | NUR ---
PT ALERT AND ORIENTED X4. COMPLAINING OF PAIN IN LAC HEAD, NECK, AND BACK. PRN MORPHINE GIVEN WITH GOOD PAIN RELIEF. DIALYSIS DONE THIS AM. TOLERATED WELL. ORDER TO TRANSFER TO TELE. REPORT GIVEN TO BRE Y[facility]G [facility]. PT'S CALLED AND INFORMED OF TRANSFER.
--- NOTE | 2019-11-06 19:43 | NUR ---
PT TRANSFERED FROM ICU. PT ALERT X4 FROM HOME. PAIN ON HEAD TREATED WITH COLD WASH CLOTH, CHRONIC NECK AND BACK PAIN 12/12. BS TREATED WITH INSULIN PER ORDER. PT IS ANURIC, DIALYSIS TODAY WITH 2L REMOVED PER OUTPATIENT THERAPIST. POSSIBLE DC HOME WITH HH TOMORROW. CALL LIGHT IN REACH. BED ALARM SET. PT STATES SHE USES WALKER TO AMBULATE.
[2019-11-07 05:13] VITALS: BP 129/53
[2019-11-07 07:32] VITALS: BP 107/45
[2019-11-07 11:25] VITALS: BP 121/57
[2019-11-07 14:54] VITALS: BP 121/57
--- NOTE | 2019-11-07 16:06 | NUR ---
ASSUMED CARE 0700. ALERT X4, PAIN MANAGED WITH PRN MEDS, DENIES SOB, DENIES CHEST PAIN, LACERATIONS C JYOTI INTACT NO DRAINAGE. WORKED WITH PHYSICAL THERAPY WHO VOICED SHE IS CLOSE TO HER BASELINE. WILL DC HOME WITH HH.
--- NOTE | 2019-11-09 07:04 | NUR ---
RECEIVED OT EVALUATION ORDER. PATIENT DISCHARGED PRIOR TO OT BEING ABLE TO INITIATE THE EVALUATION.
== END 2019-11-07 17:15 | disposition home health service (06) | DRG 40 ==
LOC: ER 17:52 → EROBS 20:14 → ICU 20:14 → 2N 11-06 16:58
PROVIDERS: Emergency Medicine; Nurse Practitioner Family; ADMIT Hospitalist
PROC: 0JQ00ZZ Repair Scalp Subcutaneous Tissue and Fascia, Open Approach (ICD-10-PCS; principal; 2019-11-05)
PROC: 5A1D70Z Performance of Urinary Filtration, Intermittent, Less than 6 Hours Per Day (ICD-10-PCS; 2019-11-06)
DX: S06.5X9A Traumatic subdural hemorrhage with loss of consciousness of unspecified duration, initial encounter (principal); N18.6 End stage renal disease; E87.1 Hypo-osmolality and hyponatremia; E16.2 Hypoglycemia, unspecified; W01.0XXA Fall on same level from slipping, tripping and stumbling without subsequent striking against object, initial encounter; Z96.642 Presence of left artificial hip joint; K21.9 Gastro-esophageal reflux disease without esophagitis; E11.22 Type 2 diabetes mellitus with diabetic chronic kidney disease; E11.51 Type 2 diabetes mellitus with diabetic peripheral angiopathy without gangrene; E03.9 Hypothyroidism, unspecified; F17.210 Nicotine dependence, cigarettes, uncomplicated; F32.9 Major depressive disorder, single episode, unspecified; E87.5 Hyperkalemia; G89.29 Other chronic pain; M54.9 Dorsalgia, unspecified; D53.9 Nutritional anemia, unspecified; S01.01XA Laceration without foreign body of scalp, initial encounter; Y93.89 Activity, other specified; B19.20 Unspecified viral hepatitis C without hepatic coma; Z99.2 Dependence on renal dialysis; Y92.89 Other specified places as the place of occurrence of the external cause; Y99.8 Other external cause status; Z98.1 Arthrodesis status; Z79.82 Long term (current) use of aspirin; Z79.891 Long term (current) use of opiate analgesic; Z79.899 Other long term (current) drug therapy; Z82.49 Family history of ischemic heart disease and other diseases of the circulatory system; Z83.3 Family history of diabetes mellitus
CPT/HCPCS: 10078; 10081; 32100

== ENCOUNTER → 2019-11-12 | Outpatient (CLI) | payer OTHER, BC | LOC: CAT 12:48 | DX: S06.5X9D Traumatic subdural hemorrhage with loss of consciousness of unspecified duration, subsequent encounter (principal); X58.XXXD Exposure to other specified factors, subsequent encounter ==

== ENCOUNTER → 2019-11-19 | Outpatient (CLI) | payer OTHER, BC ==
[~2019-11-19] MED LIST changes: +LEVEMIR FL100 UNIT/2 SUBQ
== END ==
LOC: CAT 12:54
DX: S06.5X0A Traumatic subdural hemorrhage without loss of consciousness, initial encounter (principal); M48.52XA Collapsed vertebra, not elsewhere classified, cervical region, initial encounter for fracture; X58.XXXA Exposure to other specified factors, initial encounter; Y93.89 Activity, other specified; Y92.89 Other specified places as the place of occurrence of the external cause; Y99.8 Other external cause status

== ENCOUNTER → 2019-11-24 | Outpatient (CLI) | payer OTHER, BC | LOC: CAT 10:18 | DX: S06.5X9A Traumatic subdural hemorrhage with loss of consciousness of unspecified duration, initial encounter (principal); X58.XXXA Exposure to other specified factors, initial encounter; Y93.89 Activity, other specified; Y92.89 Other specified places as the place of occurrence of the external cause; Y99.8 Other external cause status ==

== ENCOUNTER → 2020-02-11 | Outpatient (CLI) | payer OTHER, BC ==
[~2020-02-11] MED LIST changes: +ASA81BEC PO; +ESCITALOPRA5 MG/5 ML PO; +LIPITOR10 MG PO; +PLAVIX 75 MG TA75 MG PO
== END ==
LOC: SJCVCIMAG 09:22
PROVIDERS: ATTEND Podiatrist Foot & Ankle Surgery
DX: I70.203 Unspecified atherosclerosis of native arteries of extremities, bilateral legs (principal)

== ENCOUNTER → 2020-03-22 | Outpatient (CLI) | payer OTHER, BC | LOC: SJCVC 12:52 | PROVIDERS: ATTEND Nuclear Medicine Nuclear Cardiology | DX: E78.00 Pure hypercholesterolemia, unspecified (principal); E11.51 Type 2 diabetes mellitus with diabetic peripheral angiopathy without gangrene; E11.22 Type 2 diabetes mellitus with diabetic chronic kidney disease; I12.9 Hypertensive chronic kidney disease with stage 1 through stage 4 chronic kidney disease, or unspecified chronic kidney disease; Z79.4 Long term (current) use of insulin; Z99.2 Dependence on renal dialysis ==

== ENCOUNTER 2020-03-24 10:52 | Observation (INO) | payer OTHER, BC ==
[~2020-03-24] VITALS: Ht 162.6 cm; Wt 106.6 kg
[~2020-03-24 10:52] MED LIST changes: -ASA81BEC PO; -ESCITALOPRA5 MG/5 ML PO; -LIPITOR10 MG PO; -PLAVIX 75 MG TA75 MG PO
[2020-03-24 11:49] VITALS: BP 178/85
[2020-03-24] MEDS ORDERED: LIPITOR10 MG PO (12:12)
[2020-03-24] MEDS ORDERED: PLAVIX 75 MG TA75 MG PO (12:13)
[2020-03-24] MEDS ORDERED: ESCITALOPRA5 MG/5 ML PO (12:13)
[2020-03-24] MEDS ORDERED: ASA81BEC PO (12:15)
[2020-03-24 12:36] LABS: HEMATOCRIT 34.3 % (37.0-47.0); HEMOGLOBIN 11.2 gm/dL (12.0-15.0); MCH 27.7 pg (26.0-34.0); MCHC 32.7 g/dL (28.0-37.0); MCV 84.5 fL (80.0-100.0); RBC 4.06 mil/uL (4.20-5.00); RDW 19.4 % (10.5-14.5); WBC 5.6 thou/uL (4.0-11.0)
[2020-03-24 13:05] LABS: CALCIUM 9.4 mg/dL (8.5-10.1); CREATININE 6.3 mg/dL (0.6-1.0); POTASSIUM 5.1 mmol/L (3.5-5.1)
[2020-03-24 16:45] VITALS: BP 121/54
[2020-03-24 17:00] VITALS: BP 119/47
[2020-03-24 17:15] VITALS: BP 129/51
[2020-03-24 17:30] VITALS: BP 135/57
[2020-03-24 19:29] VITALS: BP 125/60
--- NOTE | 2020-03-24 20:26 | NUR ---
PT. ARRIVED AT FLOOR AROUND 1645; PT. AOX4; ON BED REST; L. SIDE GROIN C/D/I; EDUCATED ABOUT BED REST UNTIL 1800; [facility]; EDUCATED ABOUT CALLING BEFORE GETTING UP FROM BED; [facility]; PRN PAIN MEDICATION GIVEN; ADMISSION PERFORMED; ASSESSMENT CHARGED; FOLLOWING POC; PASSED ON REPORT;
[2020-03-25 05:01] VITALS: BP 147/63
--- NOTE | 2020-03-25 07:30 | NUR ---
PT ALERT AND ORIENTED. VSS.PRN PAIN MEDS FOR CHRONIC BACK PAIN. DENIES CHEST PAIN OR S/P. CATH SITE, RIGHT GROIN, C/D/I. WILL CONTINUE TO MONITOR AND FOLLOW POC.
[2020-03-25 08:00] VITALS: BP 161/72
--- NOTE | 2020-03-25 09:31 | NUR ---
RECEIVED PT'S CARE AROUND 0730; PT. ON BED; ALERT; DURING AM ASSESSMENT PT. AOX4; C/O BACK PAIN; 12/12; CHRONIC BACK PAIN; PRN PAIN MEDICATION NOT DUE; [facility]; REFUSED PLAVIX; NOT TAKE ON A REGULAR BASIS; BLASTING GANG MINER MOTOR CARRIER INSPECTOR AWARE; INSULIN GIVEN; REQUESTED MIRALAX; BLASTING GANG MINER MOTOR CARRIER INSPECTOR NOTIDIED; ORDERS ON PLACED; EDUCATED ABOUT D/C PROCESS; [facility]; [facility] GET [facility] HOSPITAL AFTER 1100; ASSESSMENT CHARGED; FOLLOWING POC; MONITORING; WORKING ON D/C PAPERS;
[2020-03-25 10:38] VITALS: BP 161/72
[2020-03-25 10:40] VITALS: BP 161/72
== END 2020-03-25 11:14 | disposition home or self-care (01) ==
LOC: CATH 10:52 → 2N 16:44 → CATH 16:45 → 2N 16:45
PROVIDERS: ADMIT Nuclear Medicine Nuclear Cardiology; ATTEND Nuclear Medicine Nuclear Cardiology
DX: I70.201 Unspecified atherosclerosis of native arteries of extremities, right leg (principal); I70.202 Unspecified atherosclerosis of native arteries of extremities, left leg; E11.22 Type 2 diabetes mellitus with diabetic chronic kidney disease; I12.0 Hypertensive chronic kidney disease with stage 5 chronic kidney disease or end stage renal disease; N18.6 End stage renal disease; E78.00 Pure hypercholesterolemia, unspecified; Z79.4 Long term (current) use of insulin; Z79.82 Long term (current) use of aspirin; Z79.899 Other long term (current) drug therapy; Z99.2 Dependence on renal dialysis
CPT/HCPCS: 10081

== ENCOUNTER 2020-12-29 17:30 | Inpatient (IN) | payer OTHER, BC ==
[~2020-12-29] VITALS: Ht 162.6 cm; Wt 105.2 kg
[~2020-12-29 17:30] MED LIST changes: +ASA81BEC PO; +ESCITALOPRA5 MG/5 ML PO; +LIPITOR10 MG PO; +PLAVIX 75 MG TA75 MG PO
[2020-12-29 17:35] VITALS: BP 188/93
[2020-12-29 18:38] LABS: ABSOLUTE NEUTROPHILS 4.1 thou/uL (1.4-8.2); BASOPHILS 0.7 % (0.0-2.0); EOSINOPHILS 2.9 % (0.0-3.0); HEMATOCRIT 38.7 % (37.0-47.0); HEMOGLOBIN 12.2 gm/dL (12.0-15.0); LYMPHOCYTES 19.8 % (24.0-44.0); MCH 28.3 pg (26.0-34.0); MCHC 31.6 g/dL (28.0-37.0); MCV 89.8 fL (80.0-100.0); MONOCYTES 7.3 % (1.0-8.0); PLATELET COUNT 228 thou/uL (150-400); POLYS 69.3 % (36.0-66.0); RBC 4.31 mil/uL (4.20-5.00); RDW 16.5 % (10.5-14.5); WBC 5.9 thou/uL (4.0-11.0)
[2020-12-29 18:39] LABS: ANION GAP 9 mmol/L (7-16); BUN 31 mg/dL (7-18); CALCIUM 8.9 mg/dL (8.5-10.1); CHLORIDE 95 mmol/L (98-107); CO2 32 mmol/L (21-32); CREATININE 6.5 mg/dL (0.6-1.0); GLUCOSE 278 mg/dL (74-106); POTASSIUM 5.1 mmol/L (3.5-5.1); SODIUM 136 mmol/L (136-145)
[2020-12-29 18:45] LABS: ALBUMIN 3.4 g/dL (3.4-5.0); DIRECT BILIRUBIN < 0.1 mg/dL (<0.1-0.2); SGOT 21 U/L (15-37); SGPT 18 U/L (14-59); TOTAL BILIRUBIN 0.3 mg/dL (0.2-1.0); TOTAL PROTEIN 8.5 g/dL (6.4-8.2)
[2020-12-29 18:46] LABS: INR 1.03; PROTIME 11.2 Seconds (10.5-12.1)
[2020-12-29] MEDS ORDERED: LEVOTHYROXINE100 MC2 PO (19:03)
[2020-12-29] MEDS ORDERED: CARVEDILOL12.5 MG PO (19:06)
[2020-12-29 21:29] VITALS: BP 195/91
[2020-12-29 21:56] VITALS: BP 196/91
[2020-12-29 22:00] VITALS: BP 177/92
--- NOTE | 2020-12-30 00:42 | NUR ---
PT ARRIVED VIA CART FROM ER. PT A/0X4 AND VSS. ALL CONSULTS HAVE BEEN CALLED IN. INTERVENTIONS INITIATED, CARE PLAN IN PLACE, AND MEC REC COMPLETED. PT USES WALKER AT HOME. DIALYSIS WILL BE ON SATURDAY. WILL CONTINUE TO ASSESS.
[2020-12-30] MEDS ORDERED: CALCIUM ACETAT667 M1 PO (00:49)
[2020-12-30 04:11] LABS: GLYCOHEMOGLOBIN (HGB A1C) 8.7 % (4.8-5.6)
[2020-12-30 04:34] LABS: CHOLESTEROL 153 mg/dL (<200); HDL CHOLESTEROL 53 mg/dL (>40); LDL CHOLESTEROL 85 mg/dL (<100); TC:HDL 2.9 Ratio (Not establshd); TRIGLYCERIDE 75 mg/dL (<150); VLDL 15 mg/dL (<40)
[2020-12-30 04:45] LABS: SERUM ASSESSMENT Clear
[2020-12-30 05:29] VITALS: BP 135/66
[2020-12-30 07:50] VITALS: BP 154/70
--- NOTE | 2020-12-30 13:29 | NUR ---
INITIAL ASSESSMENT: VIVIANE reviewed chart and spoke with nursing and attending physician. Pt was admitted from home due to possible CVA. Pt with hx CVA and ESRD. Pt goes to dialysis at [facility]. Pt was on [facility] in March of 2020 for inpt acute rehab and discharged home with [facility]. Pt to have MRI today. Neuro consulted. VIVIANE met with pt at bedside. Introduced role of SW. Pt is alert/orientated x 4. Pt reports she lives at home with her . Prior to admission, pt was independent with ADLs. Pt does have a walker. Pt states there are 3 steps into her house. Pt goes to dialysis MWF second shift. Pt's PCP is Dr. Fab Jurado. [facility] is consulted. VIVIANE discussed discharge options for pt. Pt is agreeable with going to [facility] if accepted. Awaiting input from [facility] at this time. VIVIANE spoke with Renee at [facility]. Update provided. If pt is discharged home over the weekend, pt can resume her regular dialysis schedule on Saturday. Finalized discharge ppwk will need to be faxed to [facility] if pt is discharged over the weekend. VIVIANE is following to assist as needed with discharge planning. [facility]--
[2020-12-30 15:17] VITALS: BP 96/64
--- NOTE | 2020-12-30 16:18 | NUR ---
PT RESTING COMFORTABLY. DIALYSIS TODAY FOR 3.5 HOURS, WITH 2L TAKEN OFF (PER BED LABORER). MRI OF HEAD TODAY. NIH CONTINUES TO BE 4, WITH NO INCREASING OR DECREASING SCORE. PT AFEBRILE, ANEURIC, NO BM, APPROPRIATE APPETITE. PT AND FAMILY HAVE BEEN THOUROUGHLY UPDATED AND EDUCATED ON PT CONDITION AND POC. PT SLOWLY PROGRESSING TOWARDS POC.
[2020-12-30 20:57] VITALS: BP 122/53
--- NOTE | 2020-12-30 21:58 | NUR ---
Pt alert and oriented x4. vss afebrile. No s/s distress. us being performed presently. Pt resting quietly presently watching tv.
[2020-12-31 04:06] LABS: HEP B SURFACE Ab(ANTI-HBS Reactive (()); HEPATITIS B SURFACE AG Negative (Negative)
[2020-12-31 05:10] VITALS: BP 144/64
--- NOTE | 2020-12-31 05:23 | NUR ---
PT PROGRESSING TOWARDS D/C GOALS. VSS T 98.9. C/O BACK PAIN AND [place] MEDICATING WITH OXYCODONE AND TYLENOL PRN WIH ADEQUAE RELIEF OBTAIND IN BEWEEN DOSES. NO S/S BLEEDING NOTED. MIRALAX GIVEN X1 TONIGHT PER PT REQUEST. SHE HAD 1 MED BM.
[2020-12-31 07:31] VITALS: BP 153/65
[2020-12-31] MEDS ORDERED: LEVOTHYROXINE100 MC2 PO (11:23)
[2020-12-31 11:35] VITALS: BP 153/65
--- NOTE | 2020-12-31 12:27 | NUR ---
PATIENT DISCHARGED HOME AT THIS TIME.SHE IS ALERT ORIENTED X4. INSTRUCTED TO F/U WITH PIPE ASSEMBLY WORKER. WILL CONT WITH PLAN OF CARE.
[2021-01-02 18:06] LABS: SYPHILIS AB Non Reactive (Non Reactive)
--- NOTE | 2021-01-02 22:23 | HC ---
[facility] [place] [address] CONSULTATION Name: RAZIA COLEMAN Room #: 363-P [facility] IN M.R.#: [id number] Admission: 12/29/20 Attend Phys: Sarath Maher MD Discharge: 12/31/20 Date of : 56 Report #: [id number] THIS REPORT FOR: cc: Fab Jurado MD, Brady DO Khosla, Parveen K. MD ~ DOC #: [id number] Francisco J Alexander MD DATE OF SERVICE: 12/29/2020 HISTORY OF PRESENT ILLNESS: This is a 60-year-old female patient on whom a consultation was requested by Dr. Echevarria from the Emergency Room. 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 She is complaining of headache on the left side. She has been to [facility] twice and there is no one who referred her here, so I resumed a checkup for glaucoma and the common conditions of the eye, which can cause the pain. She also has a prior history of a stroke. 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 She has a history of diabetes, GERD, anemia. She is on hemodialysis. She has a history of hepatitis C, peripheral vascular disease. She had a stroke in 2001 with right-sided weakness. She has a history of hypothyroidism, depression, laminectomy, right shoulder is difficult to move. This patient had a pretty extensive workup in the past as far as 2018. In fact, I had seen this patient that time and one time she developed even a subdural hematoma. She was seen by Neurosurgery. I reviewed those records in fact, she was in the rehab that time. She also has been here for discoloration of the foot as well as arterial insufficiency of the lower extremities and that was relevant 14-point review of systems. PAST MEDICAL HISTORY: Positive for end-stage renal disease as well as a stroke. FAMILY HISTORY: Unremarkable. SOCIAL HISTORY: She has a prior history of smoking. PHYSICAL EXAMINATION: Indicate she is alert. She is responsive. She can follow simple command. Her speech intermittently became worse, but she was surprised with it. When she talked, she talked properly. Cranial nerve examination II-XII was carried out. She may have slight facial palsy, I can tell about the visual snow. She does have difficulty with a partial left [facility] [address] [place] [address] CONSULTATION Name: RAZIA COLEMAN Room #: 363-P [facility] IN M.R.#: [id number] Admission: 12/29/20 Attend Phys: Sarath Maher MD Discharge: 12/31/20 Date of : 56 Report #: [id number] abducens palsy, but she is also complaining of pain in that region. Cardiac examination is unremarkable. No respiratory difficulty was noticed. Pulses are difficult to feel. Vision and hearing looks adequate. The patient's blood pressure was running about 190. IMPRESSION AND PLAN: Although this may be just a left facial palsy, but this patient is having too many symptoms at the moment. Her blood pressure is elevated. She is complaining of left eye pain and pain behind the left eye. She thinks the weakness on the right side may be worse. Considering all this, the best is to admit her. The best will be to do an MRI of the brain and MRA of the head as an initial testing. She may need evaluation of the sinuses including cavernous sinuses depending upon what other workup showed. I discussed all of it in detail with the patient and the patient wants to follow this plan. Thank you very much for this referral. We will follow this patient along with you. Francisco J Alexander MD PK/AGGIE <ELECTRONICALLY SIGNED> By: Francisco J Alexander MD 01/02/21 [id number] Francisco J Alexander MD /nt
== END 2020-12-31 12:41 | disposition home or self-care (01) | DRG 123 ==
LOC: ER 17:30 → EROBS 20:26 → 3W 20:26
PROVIDERS: Emergency Medicine; Internal Medicine Nephrology; Nurse Practitioner Family; Psychiatry & Neurology Neuromuscular Medicine; ADMIT Hospitalist; ATTEND Hospitalist
PROC: 5A1D70Z Performance of Urinary Filtration, Intermittent, Less than 6 Hours Per Day (ICD-10-PCS; principal; 2020-12-30)
DX: H49.22 Sixth [abducent] nerve palsy, left eye (principal); N18.6 End stage renal disease; I69.351 Hemiplegia and hemiparesis following cerebral infarction affecting right dominant side; I12.0 Hypertensive chronic kidney disease with stage 5 chronic kidney disease or end stage renal disease; H53.2 Diplopia; E11.22 Type 2 diabetes mellitus with diabetic chronic kidney disease; E11.319 Type 2 diabetes mellitus with unspecified diabetic retinopathy without macular edema; Z96.642 Presence of left artificial hip joint; K21.9 Gastro-esophageal reflux disease without esophagitis; E11.51 Type 2 diabetes mellitus with diabetic peripheral angiopathy without gangrene; E03.9 Hypothyroidism, unspecified; F32.9 Major depressive disorder, single episode, unspecified; E11.40 Type 2 diabetes mellitus with diabetic neuropathy, unspecified; E11.65 Type 2 diabetes mellitus with hyperglycemia; B19.20 Unspecified viral hepatitis C without hepatic coma; E66.9 Obesity, unspecified; M54.9 Dorsalgia, unspecified; G89.29 Other chronic pain; Z79.899 Other long term (current) drug therapy; Z87.891 Personal history of nicotine dependence; Z79.82 Long term (current) use of aspirin; Z68.39 Body mass index [BMI] 39.0-39.9, adult
CPT/HCPCS: 10879; 32100

== ENCOUNTER 2021-01-02 15:11 | Emergency (ER) | payer OTHER, BC ==
[~2021-01-02] VITALS: Ht 162.6 cm; Wt 102.1 kg
[~2021-01-02 15:11] MED LIST changes: +CALCIUM ACETAT667 M1 PO; +CARVEDILOL12.5 MG PO; +LEVOTHYROXINE100 MC2 PO
[2021-01-02 17:06] VITALS: BP 120/78
== END 2021-01-02 17:06 | disposition home or self-care (01) ==
LOC: ER 15:11
DX: H49.22 Sixth [abducent] nerve palsy, left eye (principal); K21.9 Gastro-esophageal reflux disease without esophagitis; F32.9 Major depressive disorder, single episode, unspecified; E03.9 Hypothyroidism, unspecified; E11.22 Type 2 diabetes mellitus with diabetic chronic kidney disease; N18.6 End stage renal disease; E11.51 Type 2 diabetes mellitus with diabetic peripheral angiopathy without gangrene; F17.210 Nicotine dependence, cigarettes, uncomplicated; Z79.899 Other long term (current) drug therapy; Z79.4 Long term (current) use of insulin; Z79.82 Long term (current) use of aspirin

== ENCOUNTER → 2021-01-12 | Outpatient (CLI) | payer OTHER, BC | LOC: SJCVCIMAG 01-05 09:07 | PROVIDERS: ATTEND Nuclear Medicine Nuclear Cardiology | DX: I70.203 Unspecified atherosclerosis of native arteries of extremities, bilateral legs (principal); I77.9 Disorder of arteries and arterioles, unspecified; E11.22 Type 2 diabetes mellitus with diabetic chronic kidney disease; I12.0 Hypertensive chronic kidney disease with stage 5 chronic kidney disease or end stage renal disease; N18.6 End stage renal disease; E78.00 Pure hypercholesterolemia, unspecified; Z99.2 Dependence on renal dialysis; Z79.4 Long term (current) use of insulin; Z79.899 Other long term (current) drug therapy; Z87.891 Personal history of nicotine dependence ==

== ENCOUNTER 2021-05-25 23:26 | Emergency (ER) | payer OTHER, BC ==
[~2021-05-25] VITALS: Ht 162.6 cm; Wt 113.4 kg
[2021-05-25 23:28] VITALS: BP 169/64
== END 2021-05-26 01:23 | disposition home or self-care (01) ==
LOC: ER 23:26
DX: N93.8 Other specified abnormal uterine and vaginal bleeding (principal); K21.9 Gastro-esophageal reflux disease without esophagitis; E03.9 Hypothyroidism, unspecified; F32.9 Major depressive disorder, single episode, unspecified; I73.9 Peripheral vascular disease, unspecified; E11.22 Type 2 diabetes mellitus with diabetic chronic kidney disease; N18.6 End stage renal disease; F17.210 Nicotine dependence, cigarettes, uncomplicated; Z99.2 Dependence on renal dialysis; Z98.890 Other specified postprocedural states; Z79.4 Long term (current) use of insulin; Z79.82 Long term (current) use of aspirin; Z79.899 Other long term (current) drug therapy; Z79.891 Long term (current) use of opiate analgesic